=== PATIENT | male | born 1980 | race Caucasian/White ===

== ENCOUNTER 2016-09-22 06:04 | Day surgery (SDC) | payer MEDICAID | END 2016-09-22 10:10 | disposition T | LOC: SRG 06:04 → SHSB 06:05 → ORE 07:42 → PACU 08:52 | PROC: 0CDXXZ0 Extraction of Lower Tooth, Single, External Approach (ICD-10-PCS; principal; 2016-09-22) | PROC: 0CDWXZ0 Extraction of Upper Tooth, Single, External Approach (ICD-10-PCS; 2016-09-22) | DX: K04.7 Periapical abscess without sinus (principal); F41.9 Anxiety disorder, unspecified; G47.30 Sleep apnea, unspecified; Z98.890 Other specified postprocedural states ==